=== PATIENT | male | born 1955 | race Caucasian/White ===

== ENCOUNTER 2016-07-03 12:28 | Day surgery (SDC) | payer OTHER ==
--- NOTE | 2016-06-29 15:51 | HP ---
DATE OF ADMISSION: CHIEF COMPLAINT: Abdominal wall mass. HISTORY OF PRESENT ILLNESS: The patient is a 61-year-old male seen in the office today with complaints of abdominal wall mass. The patient says he has had this bulge growing at the site of a previous appendectomy for the last several years. Now it is causing increased discomfort. He denies any fluctuation in size based on his activity levels. No change in bowel habits. He does have small hernias as well that he is aware of. PAST MEDICAL HISTORY: None. PAST SURGICAL HISTORY: Appendectomy, knee. MEDICATIONS: None. ALLERGIES: None. PHYSICAL EXAMINATION: GENERAL: Well-developed, well-nourished male in no distress. HEENT: Normocephalic. Sclerae nonicteric. CHEST: No deformities. ABDOMEN: Soft, obese. Diastases recti noted with a small fleshy mass in the upper mid abdomen, suspect small midline ventral hernia, incarcerated. Small incarcerated umbilical hernia as well, measuring about 1 cm in size. Large mass right lower quadrant measuring 9 x 5 cm without tenderness at the site of the previous appendectomy. No fascial defect identified. 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 PLAN: We will proceed with surgical excision of this mass. The hernia present in the upper midline and also at the umbilicus also discussed. These are asymptomatic presently and at least at this time the patient and I have decided to continue with observation. The risks of the procedure are noted to include but not be limited to bleeding, infection, recurrence, seroma formation, possible herniorrhaphy if identified. The patient understands and wishes to proceed.
[2016-07-01 09:35] VITALS: BMI 33.7
[~2016-07-03 12:28] MED LIST: DEXAMETHASONE SOD PHOSPHATE 10 MG/ML 1 ML VIAL IV ONE; HEPARIN SODIUM,PORCINE 5,000 UNIT/ML 1 ML VIAL SQ ONE; HYDROmorphone 1 MG/ML 1 ML SYRINGE IVP PRN; LACTATED RINGERS 1,000 ML IV SCH; MIDAZOLAM 2 MG/2 ML VIAL IV PRN; ONDANSETRON 4 MG/2 ML VIAL IVP ONE; Pre Op ABX Message 1 EACH MISC MISCELLANE ONE
[2016-07-03 13:14] LABS: Glucose,Whole Blood 162 mg/dL (75-99)
[2016-07-03] MEDS ORDERED: LIDOCAINE 1% 20 ML VIAL (10MG/ML) FOR IV START INTRADERMA ONE (13:18)
[2016-07-03 13:22] VITALS: RESP 16
[2016-07-03] MEDS ORDERED: fentaNYL (PF) 50 MCG/ML 2 ML AMP ONE (13:46)
[2016-07-03] MEDS ORDERED: BUPIVACAIN-EPI 0.25%-1:200,000 30 ML VIAL SQ ONE (13:46)
[2016-07-03] MEDS ORDERED: PROPOFOL 10 MG/ML 20 ML VIAL IV ONE (13:46)
[2016-07-03] MEDS ORDERED: LIDOCAINE 1% INJ 10MG/ML (20 ML MDV) ONE (13:46)
[2016-07-03] MEDS ORDERED: MIDAZOLAM 2 MG/2 ML VIAL ONE (13:46)
[2016-07-03] MEDS ORDERED: ONDANSETRON 4 MG/2 ML VIAL ONE (13:46)
[2016-07-03] MEDS ORDERED: KETAMINE 10 MG/ML 20 ML VIAL ONE (13:46)
[2016-07-03] MEDS ORDERED: SODIUM CHLORIDE 0.9% 100 ML with ceFAZolin 2,000 MG IV ONE ×2 (13:51)
[2016-07-03 14:50] VITALS: TEMP 96.9
[2016-07-03 15:02] LABS: Glucose,Whole Blood 175 mg/dL (75-99)
[2016-07-03] MEDS ORDERED: NALOXONE 0.4 MG/ML 1 ML VIAL IV PRN (15:12)
[2016-07-03] MEDS ORDERED: HYDROcodone/APAP 5-325MG 1 EACH TAB PO PRN (15:12)
--- NOTE | 2016-07-03 15:15 | P.OP ---
Date of Procedure: 07/03/16 Procedure(s) Performed: PREOPERATIVE DIAGNOSIS: Abdominal wall lipoma POSTOPERATIVE DIAGNOSIS: Same PROCEDURE: Excision abdominal wall lipoma SURGEON: Liz REYL: Minimal Procedure: Patient's place never table in the supine position. The patient's abdomen was prepped and draped in usual sterile fashion. The lipomatous mass was excised in an elliptical fashion encompassing a large amount of overlying skin. The lipomatous mass was able to be for the most part excised bluntly. There were a few areas that required electrocautery. The mass was felt to be completely excised. This measured 13 x 8 cm this was above the level of the fascia. The subcutaneous tissues were then closed using inverted 3-0 Vicryl sutures and the skin using a running 4-0 Monocryl stitch. Steri-Strips and sterile dressings were then applied. COMPLICATIONS: None DISPOSITION: Stable to recovery room
[2016-07-03 16:48] VITALS: BP 118/66; PULSE 72
== END 2016-07-03 17:12 | disposition home or self-care (01) ==
LOC: OR 12:28
PROVIDERS: ATTEND Surgery
DX: D17.1 Benign lipomatous neoplasm of skin and subcutaneous tissue of trunk (principal); I10 Essential (primary) hypertension; E11.9 Type 2 diabetes mellitus without complications; Z79.84 Long term (current) use of oral hypoglycemic drugs; Z79.899 Other long term (current) drug therapy
CPT/HCPCS: 88304; 11406; 12035; J2250; J1644; J1100; J2405; J2001; J3010; J0690; J2704

== ENCOUNTER 2016-10-28 07:09 | Day surgery (SDC) | payer OTHER ==
[2016-10-23 13:24] VITALS: BMI 31.8
[~2016-10-28 07:09] MED LIST changes: -DEXAMETHASONE SOD PHOSPHATE 10 MG/ML 1 ML VIAL IV ONE; -HEPARIN SODIUM,PORCINE 5,000 UNIT/ML 1 ML VIAL SQ ONE; -HYDROmorphone 1 MG/ML 1 ML SYRINGE IVP PRN; -MIDAZOLAM 2 MG/2 ML VIAL IV PRN; -ONDANSETRON 4 MG/2 ML VIAL IVP ONE; -Pre Op ABX Message 1 EACH MISC MISCELLANE ONE
[2016-10-28 07:27] VITALS: TEMP 97.8
[2016-10-28] MEDS ORDERED: LACTATED RINGERS 1,000 ML IV ONE (07:30)
[2016-10-28 07:33] LABS: Glucose,Whole Blood 173 mg/dL (75-99)
[2016-10-28] MEDS ORDERED: MIDAZOLAM 2 MG/2 ML VIAL ONE (07:41)
[2016-10-28] MEDS ORDERED: PROPOFOL 10 MG/ML 20 ML VIAL IV ONE (07:41)
[2016-10-28] MEDS ORDERED: fentaNYL (PF) 50 MCG/ML 2 ML AMP ONE (07:41)
--- NOTE | 2016-10-28 07:46 | P.GSHP ---
History of Present Illness H&P Date: 10/28/16 Chief Complaint: Colon cancer screening Patient admitted today for colonoscopy. He has not had one previously. He has no bowel related complaints. No family history of colon cancer. Past Medical History Past Medical History: Diabetes Mellitus, Hypertension History of Any Multi-Drug Resistant Organisms: None Reported Past Surgical History: Appendectomy, Orthopedic Surgery Additional Past Surgical History / Comment(s): fatty tumor removed lower rt abdomen, RT KNEE SCOPE AND SX,LT KNEE SX X2 Past Anesthesia/Blood Transfusion Reactions: No Reported Reaction Past Psychological History: No Psychological Hx Reported Smoking Status: Never smoker Past Alcohol Use History: Occasional Past Drug Use History: None Reported - Past Family History Father Family Medical History: Cancer Brother(s) Family Medical History: Cancer Mother Family Medical History: Cancer Medications and Allergies Home Medications Medication Instructions Recorded Confirmed Type Atenolol [Tenormin] 50 mg PO DAILY 07/03/16 10/28/16 History metFORMIN HCL 1,000 mg PO HS 07/03/16 10/28/16 History Allergies Allergy/AdvReac Type Severity Reaction Status Date / Time No Known Allergies Allergy Verified 07/01/16 09:12 Surgical - Exam Vital Signs Temp Resp BP Pulse Ox 97.8 F 18 145/88 95 10/28/16 07:26 10/28/16 07:26 10/28/16 07:26 10/28/16 07:26 Physical exam: General: Well-developed, well-nourished HEENT: Normocephalic, sclerae nonicteric Abdomen: Nontender, nondistended Extremities: No edema Neuro: Alert and oriented Results - Labs Abnormal Lab Results - Last 24 Hours (Table) 10/28/16 Range/Units 07:30 POC Glucose (mg/dL) 173 H (75-99) mg/dL Assessment and Plan (1) Colon cancer screening Narrative/Plan: Will proceed with colonoscopy at this time. Status: Acute
--- NOTE | 2016-10-28 08:09 | P.PCN ---
Date of Procedure: 10/28/16 Preoperative Diagnosis: Postoperative Diagnosis: Procedure(s) Performed: PREOPERATIVE DIAGNOSIS: Colon cancer screening POSTOPERATIVE DIAGNOSIS: Multiple polyps PROCEDURE: Colonoscopy with snare polypectomy ANESTHESIA: MAC SURGEON: Ernst Hill M.D. SPECIMENS: Polyps ENDOSCOPIC PROCEDURE: The patient was placed on the endoscopy table in the left decubitus position. The Olympus colonoscope was inserted into the anus and passed under direct visualization to the base of the cecum. The appendiceal orifice was visualized. From that point the scope was slowly withdrawn inspecting all surfaces carefully. There were no neoplastic inflammatory or polypoid lesions throughout the cecum, ascending, and transverse colon. In the descending colon there were 3 polyps that were all removed using the snare with cautery technique. In the sigmoid colon there were 4 polyps removed using the snare with cautery technique. The rectum appeared normal. There was no visible diverticulosis seen. Digital rectal examination was normal. The patient was taken to the recovery room in stable condition per anesthesia guidelines. RECOMMENDATIONS: Await biopsy results. Tentatively advise shorter-term colonoscopy in 3-5 years Implants: Indications for Procedure: Operative Findings: Description of Procedure:
[2016-10-28 08:12] VITALS: RESP 16
[2016-10-28 08:37] VITALS: BP 118/68; PULSE 64
== END 2016-10-28 09:00 | disposition home or self-care (01) ==
LOC: ORWHC2ENDO 07:09
PROVIDERS: ATTEND Surgery
DX: Z12.11 Encounter for screening for malignant neoplasm of colon (principal); K63.5 Polyp of colon; I10 Essential (primary) hypertension; E11.9 Type 2 diabetes mellitus without complications; Z79.84 Long term (current) use of oral hypoglycemic drugs
CPT/HCPCS: 88305; 45385; J2250; J3010; J2704

== ENCOUNTER 2023-05-21 11:39 | Day surgery (SDC) | payer MEDICARE, OTHER ==
--- NOTE | 2023-05-21 10:49 | P.GSHP ---
History of Present Illness H&P Date: 05/21/23 Chief Complaint: Incarcerated ventral hernia 67-year-old male seen in the office in February. Patient has history of enlarging bulge upper midabdomen. Painful at times. No history of previous incisions there. Past Medical History Past Medical History: Diabetes Mellitus, Hypertension History of Any Multi-Drug Resistant Organisms: None Reported Past Surgical History: Appendectomy, Orthopedic Surgery Additional Past Surgical History / Comment(s): fatty tumor removed lower rt abdomen, RT KNEE SCOPE AND SX,LT KNEE SX X2 Past Anesthesia/Blood Transfusion Reactions: No Reported Reaction Smoking Status: Never smoker - Past Family History Father Family Medical History: Cancer Brother(s) Family Medical History: Cancer Mother Family Medical History: Cancer Medications and Allergies Home Medications Medication Instructions Recorded Confirmed Type atenoloL [Tenormin] 50 mg PO DAILY 07/03/16 05/20/23 History metFORMIN HCL [Glucophage] 1,000 mg PO HS 07/03/16 05/20/23 History Loratadine [Claritin] 10 mg PO DAILY 05/20/23 05/20/23 History Tirzepatide [Mounjaro] 5 mg SQ MO 05/20/23 05/20/23 History Allergies Allergy/AdvReac Type Severity Reaction Status Date / Time No Known Allergies Allergy Verified 05/20/23 11:58 Surgical - Exam Physical exam: General: Well-developed, well-nourished HEENT: Normocephalic, sclerae nonicteric Abdomen: Nontender, nondistended, incarcerated ventral hernia upper mid abdomen slightly right of midline Extremities: No edema Neuro: Alert and oriented Assessment and Plan (1) Incarcerated ventral hernia Narrative/Plan: 67-year-old male with incarcerated ventral hernia. We'll proceed with open repair incarcerated ventral hernia with mesh. Risks of bleeding, infection, recurrence, bladder and bowel injury, numbness, nerve injury were discussed with the patient. The patient understands and wishes to proceed. Status: Acute Code(s): K43.6 - OTHER AND UNSP VENTRAL HERNIA WITH OBSTRUCTION, W/O GANGRENE SNOMED Code(s): 076118009
[~2023-05-21 11:39] MED LIST changes: +HEPARIN SODIUM,PORCINE 5,000 UNIT/ML 1 ML VIAL SQ PRN; +HYDROmorphone 0.5 MG/0.5 ML SYRINGE IVP PRN; +LIDOCAINE 1% (10MG/ML) FOR IV START INTRADERMA PRN; +droPERidol 5 MG/2 ML VIAL IVP ONE
[2023-05-21] MEDS: DEXAMETHASONE SOD PHOSPHATE 4 MG/ML 1 ML VIAL IV ONE ×2 (12:14→13:29)
[2023-05-21] MEDS: ONDANSETRON 4 MG/2 ML VIAL IVP ONE ×2 (12:15→13:29)
[2023-05-21] MEDS: ACETAMINOPHEN TAB 500 MG TAB PO PRN ×2 (12:15→13:29)
[2023-05-21] MEDS ORDERED: fentaNYL (PF) 50 MCG/ML 2 ML AMP IVP ONE (12:32)
[2023-05-21] MEDS ORDERED: MIDAZOLAM 2 MG/2 ML VIAL IVP ONE (12:32)
--- NOTE | 2023-05-21 12:57 | P.ANPRN ---
Procedure Note - Anesthesia - Nerve Block Performed Bilateral Erector Spinae Single Date of Procedure: 05/21/23 Procedure Start Time: 12:31 Procedure Stop Time: 12:42 Location of Patient: PreOp Indication: Acute Post-Operative Pain, Requested by Surgeon Sedation Type: Sedate with meaningful contact maintained Preparation: Sterile Prep Position: Prone Needle Types: Pajunk Needle Gauge: 21 Ultrasound used to visualize needle placement: Yes Ultrasound used to observe medication spread: Yes Injectate: 0.5% Ropivacaine (see comment for volume) (30 ml per side) Blood Aspirated: No Pain Paresthesia on Injection Noted: No Resistance on Injection: Normal Image Stored and Saved: Yes Events: Uneventful and Well Tolerated
[2023-05-21 13:15] LABS: Basophils % (A) 0 %; Eosinophils # (A) 0.1 k/uL (0-0.7); Eosinophils % (A) 1 %; Lymphocytes # (A) 1.8 k/uL (1.0-4.8); Lymphocytes % (A) 18 %; MCH 31.8 pg (25.0-35.0); MCHC 34.2 g/dL (31.0-37.0); MCV 92.8 fL (80.0-100.0); Mean Platelet Volume 7.1; Monocytes # (A) 0.5 k/uL (0-1.0); Monocytes % (A) 6 %; Neutrophils # (A) 7.3 k/uL (1.3-7.7); Neutrophils % (A) 74 %; Platelet Count 243 k/uL (150-450); RBC 6.19 m/uL (4.30-5.90); WBC 9.9 k/uL (3.8-10.6)
[2023-05-21 13:15] LABS: Glucose,Whole Blood 106 mg/dL (70-110)
[2023-05-21] MEDS ORDERED: ROPIVACAINE 5 MG/ML 30 ML VIAL ONE (13:28)
[2023-05-21] MEDS ORDERED: MIDAZOLAM 2 MG/2 ML VIAL ONE (13:28)
[2023-05-21] MEDS ORDERED: LIDOCAINE 1% INJ 10MG/ML (20 ML MDV) ONE (13:28)
[2023-05-21] MEDS ORDERED: ROCURONIUM 10 MG/ML (5 ML VIAL) IV ONE (13:28)
[2023-05-21] MEDS ORDERED: PROPOFOL 10 MG/ML 20 ML VIAL IV ONE (13:28)
[2023-05-21] MEDS ORDERED: NEOSTIGMINE 1 MG/ML 10 ML VIAL ONE (13:28)
[2023-05-21] MEDS ORDERED: GLYCOPYRROLATE 0.2 MG/ML 2 ML VIAL ONE (13:28)
[2023-05-21] MEDS ORDERED: SUCCINYLCHOLINE CHLORIDE 200 MG/10 ML VIAL IV ONE (13:28)
[2023-05-21] MEDS ORDERED: PHENYLEPHRINE-0.9% NACL SYG 1,000 MCG/10 ML SYRINGE ONE (13:28)
[2023-05-21] MEDS ORDERED: fentaNYL (PF) 50 MCG/ML 2 ML AMP ONE (13:28)
[2023-05-21] MEDS ORDERED: DEXAMETHASONE SOD PHOSPHATE 4 MG/ML 1 ML VIAL ONE (13:28)
[2023-05-21 13:57] LABS: HGB 19.7 gm/dL (13.0-17.5)
[2023-05-21 13:58] LABS: HCT 57.4 % (39.0-53.0)
[2023-05-21] MEDS ORDERED: LACTATED RINGERS 1,000 ML IV ONE (14:29)
[2023-05-21] MEDS ORDERED: BUPIVACAINE (PF) 0.25% 30 ML VIAL SQ ONE (14:32)
--- NOTE | 2023-05-21 15:03 | P.OP ---
Date of Procedure: 05/21/23 Procedure(s) Performed: PREOPERATIVE DIAGNOSIS: Incarcerated ventral hernia POSTOPERATIVE DIAGNOSIS: Same PROCEDURE: Open repair incarcerated ventral hernia with mesh SURGEON: Dr. Hill ANESTHESIA: General OPERATIVE PROCEDURE DETAILS: Patient placed on the operating table in the supine position. Abdomen was prepped and draped in usual sterile fashion. A vertical incision was then made in the midepigastric region Dissection through the subcutaneous tissues took place using electrocautery. The patient had a incarcerated hernia containing preperitoneal fat. The hernia sac was dissected down to the level of the fascia. Was then able to be reduced. The fascial defect was 3.57 m wide by 1.5 cm high. The preparedwas then carefully dissected using electrocautery and blunt dissection. The 6.4 cm ventral ex mesh was placed in the preperitoneal space and sutured to the fascia using trans-fascial 0 Ethibond sutures. Following that the fascial defect was reapproximated horizontally using interrupted 0 Ethibond mattress sutures. The folding edge was sutured down using 0 Ethibond sutures as well. The subcutaneous tissues were closed using 3-0 Vicryl sutures. The skin was closed using a running 4-0 Monocryl suture. Skin glue and sterile dressings were applied. HERNIA CHARACTERISTICS: Length: 1.5 cm Width: 3.5 cm Type: Incarcerated ventral TYPE OF MESH USED: 6.4 cm ventral ex LOCATION OF MESH: Sub-lay FIXATION: 0 Ethibond PREOPERATIVE DISCUSSION ON SMOKING CESSASTION: Yes PREOPERATIVE DISCUSSION ON MORBID OBESITY: Yes PREOPERATIVE DISCUSSION ON APPROPRIATE USE OF NARCOTIC USE: Yes PREOPERATIVE EDUCATION: Multi Modal, Smoking Cessation and Weight Loss with BMI over 35. DISPOSITION: Stable to recovery room
[2023-05-21 15:09] LABS: Glucose,Whole Blood 137 mg/dL (70-110)
[2023-05-21 15:13] VITALS: TEMP 97.8
[2023-05-21 16:02] VITALS: RESP 20
[2023-05-21 16:26] VITALS: BP 148/87; PULSE 99
[2023-05-21] MEDS ORDERED: TAMSULOSIN 0.4 MG CAP.ER.24H PO ONE (16:29)
[2023-05-21] MEDS ORDERED: IBUPROFEN 600 MG TAB PO SCH (17:45)
[2023-05-21] MEDS ORDERED: ACETAMINOPHEN TAB 325 MG TAB PO SCH (18:00)
== END 2023-05-21 17:05 | disposition home or self-care (01) ==
LOC: OR 11:39
PROVIDERS: ATTEND Surgery
DX: K43.6 Other and unspecified ventral hernia with obstruction, without gangrene (principal); E11.9 Type 2 diabetes mellitus without complications; I10 Essential (primary) hypertension; E66.9 Obesity, unspecified; E78.5 Hyperlipidemia, unspecified; Z79.84 Long term (current) use of oral hypoglycemic drugs; Z90.49 Acquired absence of other specified parts of digestive tract; Z79.899 Other long term (current) drug therapy
CPT/HCPCS: 49592; 64999; 85025; C1781; J2250; J0330; J1644; J1100; J2710; J0690; J2405; J2001; J3010; J2795; J2704; J1170; J2371; J0665

== ENCOUNTER → 2023-05-27 | Outpatient (CLI) | payer MEDICARE ==
--- NOTE | 2023-05-27 14:07 | CT ---
EXAMINATION TYPE: CT chest wo con DATE OF EXAM: 05/27/2023 COMPARISON: HISTORY: Chest pain and shortness of breath. CT DLP: 684.10 mGycm. Automated Exposure Control for Dose Reduction was Utilized. TECHNIQUE: CT scan of the thorax is performed without IV contrast. FINDINGS: CHEST WALL: Bilateral gynecomastia is mild. LUNGS: The lungs are grossly clear, there is no concerning parenchymal mass or nodule identified. T here is no pleural effusion or pneumothorax seen. The tracheobronchial tree is patent. MEDIASTINUM: Lack of IV contrast is noted to limit evaluation for mediastinal and especially hilar ad enopathy. There are no definitive greater than 1 cm hilar or mediastinal lymph nodes. No cardiomega ly or pericardial effusion is seen. OTHER: There is a fluid collection seen along the posterior rectus sheath in the upper abdomen with s everal pockets of air that measures 6.4 x 1.7 cm in diameter. There are foci of air and stranding als o seen in the subcutaneous fat superficial to the rectus sheath in this region. This may represent an abscess and cellulitis. IMPRESSION: 1. No acute abnormality within the chest. 2. Collection seen along the posterior rectus sheath in the upper abdomen with several pockets of air that measures 6.4 x 1.7 cm in diameter. There are foci of air and stranding also seen in the subcuta neous fat superficial to the rectus sheath in this region. This may represent an abscess and cellulit is. Follow-up recommendations for incidental pulmonary nodules are per [employer] or [employer].
== END | disposition home or self-care (01) ==
LOC: RADCTMAIN 12:49
PROVIDERS: ATTEND Family Medicine
DX: R07.9 Chest pain, unspecified (principal); R06.02 Shortness of breath
CPT/HCPCS: 71250